=== PATIENT | male | born 1950 | race Caucasian/White ===

== ENCOUNTER → 2024-03-14 11:16 | Outpatient (REF) | payer MEDICARE, OTHER, SELFPAY | LOC: HWRAD 11:16 | PROVIDERS: ATTENDING PHYSICIAN Family Medicine Geriatric Medicine; FAMILY PHYSICIAN Family Medicine | DX: Z87.891 Personal history of nicotine dependence (principal) | CPT/HCPCS: 71271 ==

== ENCOUNTER 2024-05-14 14:35 | Inpatient (IN) | payer MEDICARE, OTHER, SELFPAY ==
[2024-05-14] VITALS (12 sets, daily range): BP systolic 113–170; BP diastolic 61–87; BMI 24.1
[2024-05-14 08:52] LABS: % Basophils 0.1 % (0-2); % Immature Granulocytes 0.3 % (0-0.5); % Lymphocytes 24.3 % (20.5-51.1); % Monocytes 5.7 % (1.7-9.3); % Neutrophils 69.6 % (42.2-75.2); Absolute Lymphocytes 2.2 10^3/uL (1.2-3.4); Absolute Monocytes 0.5 10^3/uL (0.1-0.6); Absolute Neutrophils 6.3 10^3/uL (1.4-6.5); Hematocrit 38.3 % (39.0-52.0); Mean Corp Hgb Conc. 33.9 g/dL (33.0-37.0); Mean Corpuscular Hgb 31.5 pg (27.0-31.0); Mean Corpuscular Volume 92.7 fL (80.0-94.0); Mean Platelet Volume 9.5 fL (7.4-10.4); Nucleated Red Blood Cells % 0 % (-); Platelet Count 250 10^3/uL (130-400); Red Blood Cell Count 4.13 10^6/uL (4.70-6.10); Red Cell Dist. Width 13.8 % (11.5-14.5); White Blood Cell Count 9.1 10^3/uL (4.8-10.8)
[2024-05-14 08:58] LABS: ALT (SGPT) 17 U/L (0-50); AST (SGOT) 27 U/L (17-59); Albumin 4.6 g/dl (3.5-5.0); Alkaline Phosphatase 77 U/L (38-126); Blood Urea Nitrogen 16 mg/dl (9-20); Calcium 9.7 mg/dl (8.4-10.2); Carbon Dioxide 26 mmol/L (22-30); Chloride 105 mmol/L (98-107); Glucose 136 mg/dl (70-99); Potassium 4.7 mmol/L (3.5-5.1); Sodium 140 mmol/L (135-145); Total Bilirubin 1.6 mg/dl (0.2-1.3); eGFR > 60.00
--- NOTE | 2024-05-14 09:43 | ED.GENMED ---
History of Present Illness
General
Chief Complaint: Urinary Symptoms
Time Seen by Provider: 05/14/24 09:28
History of Present Illness
History of Present Illness:
74-year-old male history of prostate cancer status postresection and radiation, hypertension presenting with hematuria and difficulty urinating starting this morning. Patient noticed hematuria starting yesterday. Patient states that he was unable
to urinate since early this morning. Patient denies abdominal pain, nausea, vomiting, dysuria, fever or chills. Patient is not on blood thinners.
Phy Exam
Physical Exam
Physical Exam:
General: Alert, no acute distress
Head: NCAT
Eyes: clear conjunctiva
Neck: supple
Cardiac: regular rate and rhythm, no murmur
Lungs: clear to auscultation bilaterally. No wheezes, rales, or rhonchi. Speaking full unlabored sentences. No respiratory distress.
Abdomen: soft, nondistended nontender. No rebound or guarding. No CVA tenderness bilaterally
MSK: no lower extremity edema bilaterally. No deformity
Skin: warm, dry
Neuro: Alert and oriented x3. no focal deficits
Course
Orders/Labs/Results
Orders:
Orders
05/14/24 08:34
Complete Blood Count/With Diff Urgent
Comprehensive Metabolic Panel Urgent
05/14/24 09:39
Lidocaine 2% [Lidocaine Uro-Jet 2%] 1 syringe .ROUTE .[facility]
05/14/24 09:45
CBI- Treatment PRN
Solution: ns
Irrigate to Clear?: Yes
05/14/24 10:10
Urinalysis Reflex To Culture Urgent
Urine Microscopic Reflex Cult Urgent
05/14/24 11:01
Abdomen/Pelvis w Contrast CT [CT Abd/pelvis W Iv Cont] Urgent
Comment:
Reason For Exam: hematuria, hx prostate ca s/p resection/radiation
05/14/24 14:07
Consult Urology [UROLOGY CONSULT] Routine
Consulting Provider: Pastor Huerta
Was physician already notified: Yes
Comment: hemturia , urine retention , hemorr vs mass on ct
05/14/24 14:08
Admit/Transfer Patient As Directed
Co-Sign Provider:
Level of Care: Inpatient admission
Assign to:: Medical/Surgical
Physician / Group: lexus chang
Diagnosis: hematuria w/ lots , urinary retention, acute emphysema
Reason for Hospitalization: hematuria w/ lots , urinary retention, acute emphysema
Expected length of stay greater than two midnights?: Yes
ELOS- Estimated Length of Stay in days: 3
I certify the patient meets the requirements for IP care: Yes
Code Status As Directed
Resuscitation Status: Do not resuscitate
Reached after discussion with pt or family/Healthcare POA: Yes
Based on pt advanced directive or healthcare POA form: Yes
Decision communicated with: per pt
DNR Bracelet Application ONCE
05/14/24 14:12
PRN Pain Medication Management As Directed
May give lesser potent ordered pain med per pt: Yes
preference::
Protocol:: Medication orders for pain may be administered in a
manner that supports deferring to patient preference
when the pt is:
- Requesting an ordered lesser potent pain medication.
Least to most potent pain medications are defined
as: acetaminophen < NSAID < tramadol < opioids
(morphine, oxycodone, hydromorphone).
- Requesting a lesser dose of the same medication IF
ORDERED.
- Requesting a less intrusive route of administration
if both routes are prescribed by the provider (PO <
IV).
05/14/24 14:22
Ipratropium/Albuterol Sulfate [Duoneb] 3 ml INH R NOW STA
05/14/24 16:00
Ipratropium/Albuterol Sulfate [Duoneb] 3 ml INH R QID
Abnormal Lab Results
05/14/24 05/14/24
08:34 10:10
RBC 4.13 L 10^6/uL
(4.70-6.10)
Hct 38.3 L %
(39.0-52.0)
MCH 31.5 H pg
(27.0-31.0)
Glucose 136 H mg/dl
(70-99)
Total Bilirubin 1.6 H mg/dl
(0.2-1.3)
Urine Ketones 2+ A
(Negative)
Ur Occult Blood Reflex 4+ A
(Negative)
Urine Bilirubin 1+ A
(Negative)
Urine Urobilinogen 2+ A
(Neg - 1+)
Urine RBC >100 A /HPF
(0-2)
Urine Albumin (Reflex) 4+ A
(Neg - Trace)
05/14/24 08:34
05/14/24 08:34
Vital Signs
Initial and Last Documented VS:
Initial Vital Signs
Temp Pulse Resp BP Pulse Ox
98.7 F 76 16 140/82 96
05/14/24 08:18 05/14/24 08:18 05/14/24 08:18 05/14/24 08:18 05/14/24 08:18
Last Documented Vital Signs
Temp Pulse Resp BP Pulse Ox
98.7 F 65 16 138/76 100
05/14/24 08:18 05/14/24 10:08 05/14/24 10:08 05/14/24 14:00 05/14/24 14:00
MDM/Problems Addressed
Differential Diagnosis Includes:
UTI, NATHANIEL, electrolyte abnormality, malignancy, bleeding from previous radiation
MDM/Problems Addressed:
74-year-old male presenting with hematuria and difficulty urinating. Bladder scan greater than [address] three-way Ramsay, start CBI
Results reviewed. Hemoglobin 13. Creatinine 0.8. UA shows blood but no UTI. CT abdomen/pelvis concerning for heterogeneous hypodensity which could represent hemorrhage, cannot exclude urinary bladder mass such as malignancy ( as read by radiology)
On reevaluation, ramsay draining pink-tinged urine. Pt states he feels better. Discussed with hospitalist for admission
*Critical Care Note
Total Time (30-74mins, 75-104mins- exclusive of procedures): Not Applicable
ED Attending Note
-
Portions of this chart may have been created with voice recognition software.� Occasional wrong word or��sound alike� substitutions may have occurred due to the inherent limitations of voice recognition software.
Discharge Plan
Departure
Patient Disposition: Admit
Date of Disposition: 05/14/24
Time of Disposition: 13:06
Presentation/result/management discussed w/ accepting MD/DO: Hospitalist
Discharge Problem:
Hematuria, Acute urinary retention
Interventions
Interventions:
*Risk Screen - Suicide Last Done: 05/14/24 08:18
*General Assessment Last Done: 05/14/24 08:18
*Neglect/Abuse Screening Last Done: 05/14/24 08:18
*ED- Fall Risk Assessment Last Done: 05/14/24 10:34
*ED COVID-19 Vaccine History Last Done: 05/14/24 08:18
ED-Male Genitourinary Assessment Last Done: 05/14/24 10:08
[2024-05-14 10:21] LABS: Urine Albumin 4+ (Neg - Trace); Urine Bilirubin 1+ (Negative); Urine Character Bloody (Clear); Urine Color Brown; Urine Glucose Negative (Negative); Urine Ketone 2+ (Negative); Urine Leukocyte Negative (Negative); Urine Nitrite Negative (Negative); Urine Occult Blood 4+ (Negative); Urine Urobilinogen 2+ (Neg - 1+)
[2024-05-14 10:46] LABS: Urine Red Blood Cell >100 /HPF (0-2); Urine Squamous Cell 0-2 /LPF (Few)
--- NOTE | 2024-05-14 13:25 | HPS.HSE ---
Family Physician
-
Family Physician: Moiz Erickson
Chief Complaint
-
Hematuria with clots, difficulty voiding
History of Present Illness
74-year-old male presenting to the ER with hematuria and difficulty urinating that started this morning. He does report hematuria starting yesterday. He has history of prostate cancer s/p resection and radiation at [facility] in 2017 while in the ER
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 Patient
reports a chronic cough for years with chronic wheezing he smokes a cigar daily. He tells me he had a CAT scan of his chest in March with follow-up this [facility] routine screening. Evaluation of his CT chest on 03/14/2024 shows
2 nodules within the left lower lobe measuring up to 3 mm apical centrilobular and paraseptal emphysematous changes with biapical pleural-parenchymal scarring. The patient denies headache, fever, chills, chest pain, palpitations, shortness of
breath, abdominal pain, nausea, vomiting, diarrhea. He has past medical history of hypertension, hypothyroidism/Graves' disease, GERD, prostate CA status post prostatectomy August 2017 [facility],, depression, active smoker, THREE AFFILIATED, history
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
Medical History
Past Medical History
Past Medical History: Reports Other
Additional Past Medical History:
Emphysema with pulmonary nodules left upper lobe 03/14/2024 CT
hypertension
hypothyroidism/Graves' disease
GERD
prostate CA status post prostatectomy August 2017 [facility]
depression
active smoker
THREE AFFILIATED
Past Surgical History: Reports Other
Additional Past Surgical History:
Prostatectomy August 2017 status post prostate cancer
Lumbar disc removal
Right big toe amputation
Social History
Tobacco: Smoker (1 cigar daily)
Alcohol: None
Drug: None
Personal:
Living: With Family ( [place])
Employment: Retired ([employer])
Family History
Family History: Other (Mother and father history of dementia in their 90s)
Allergies / Home Medications
Allergies reflects when Allergies were last updated in [facility].
Home Medications with original date entered in [employer]
Allergy/Medication List:
Allergies
Allergy/AdvReac Type Severity Reaction Status Date / Time
No Known Allergies Allergy Verified 05/14/24 08:20
Home Medications
valsartan 80 mg tablet 80 mg PO DAILY 02/12/19
amoxicillin 500 mg capsule 500 mg PO BID 05/14/24
escitalopram oxalate 5 mg tablet 5 mg PO DAILY 05/14/24
levothyroxine 112 mcg tablet (Synthroid) 112 mcg PO DAILY 05/14/24
Review of Systems
-
History Source: Patient
A 12 point ROS was completed and negative except as noted: Yes
Constitutional: Denies Fever, Fatigue or Chills
EENT: Reports Runny Nose (Chronic rhinorrhea); Denies Sore Throat or Mouth Pain
Respiratory: Reports Cough (Chronic cough sometimes productive) and Other (Chronic wheezing)
Cardiac: Denies Chest Pain, Diaphoresis, Palpitations or Syncope
Abdomen/GI: Denies Abdominal Pain, Nausea, Vomiting, Diarrhea, Constipated, Bloody Stools, Black Stools or Anorexia
: Reports Difficulty Voiding and Other (Hematuria with clots yesterday); Denies Frequency or Flank Pain
Musculoskeletal: Denies Joint Pain or Edema
Skin: Denies Itching or Rash
Neurological: Denies Dizzy, Headache or Weakness
Endocrine: Reports No Symptoms
Hematologic/Lymphatic: Reports No Symptoms
Psych: Reports Calm
Physical Exam
Vital Signs
Vital Signs
Temp Pulse Resp BP Pulse Ox
98.7 F 65 16 134/80 95
05/14/24 08:18 05/14/24 10:08 05/14/24 10:08 05/14/24 11:19 05/14/24 11:30
Physical Exam
General: Comfortable and Conversant; No Pain, Fever or Chills
HEENT: NormoCephalic, Anicteric, Moist mucous membranes, PERRLA, Hernandez Conjunctivae, No Ptosis and Other (Chronic THREE AFFILIATED)
Respiratory: Wheezes (Wheezes inspiratory/expiratory throughout both lung alicia)
Cardiac: S1/S2 and Regular Rhythm; No Murmur, Rub, Gallop or Peripheral Edema
Breast: Deferred by me
GI: Soft, Non Tender, Non Distended, Normal Bowel Sounds and No Hepatosplenomegaly
Rectal: Deferred by Provider
Genito-urinary: Westbrook (Three-way Westbrook draining strawberry tinged urine in color no visible clots)
Musculoskeletal: No Clubbing, No Cyanosis and No Edema
Skin: Warm and Dry; No Rash or Jaundice
Neuro: AO x 3, No Motor Deficits, Nonfocal/grossly intact, Cranial Nerves Intact and Other (Chronic THREE AFFILIATED); No Slurred Speech, Facial Droop, Tremors or Sedated
Psych: Calm
Laboratory Results
-
05/14/24 08:34
05/14/24 08:34
Laboratory Results
Total Bilirubin 1.6 mg/dl (0.2-1.3) H 05/14/24 08:34
AST 27 U/L (17-59) 05/14/24 08:34
ALT 17 U/L (0-50) 05/14/24 08:34
Alkaline Phosphatase 77 U/L (38-126) 05/14/24 08:34
Impression/Plan
-
Impression/plan:
Admit to MedSurg
#Acute urinary retention secondary to hematuria versus possible mass vs hemorrhage
- Urinary retention initially drained dark [employer] colored
- Continue three-way CBI until clear
- Consult urology
-Patient on chronic amoxicillin 500 mg twice daily for chronic tibia infection will continue
- Follow CBC, CMP
CT abdomen pelvis with IV contrast:
1. Virtually completely empty urinary bladder containing Westbrook catheter (with bubbles of air) with heterogeneous hypodensity which could represent HEMORRHAGE,
CANNOT EXCLUDE URINARY BLADDER MASS such as malignancy. Recommend cystoscopy.
2. Bilateral simple renal cysts as well as subcentimeter low-attenuation renal lesions too small to characterize. Additional approximate 6 cm predominantly simple left renal cyst with some thin internal
septations and some peripheral/wall calcifications, Bosniak II classification. Are there prior outside CT studies to confirm stability. If not, consider follow-up CT in 6 months.
3. Fluid-filled loops of nondistended small bowel, nonspecific, cannot exclude enteritis.
4. Small simple left lobe hepatic cyst as well as additional subcentimeter low-attenuation hepatic lesions too small to characterize.
5. Suspected mild thickening of wall of the distal thoracic esophagus at least concerning for esophagitis.
#Prostate CA status post prostatectomy August 2017 [facility]
Follows with Dr. Mary Carmen Gil urology
#Acute on chronic emphysema with exacerbation(new diagnosis emphysema per CT on 03/14/2024
#Nicotine abuse smokes 1 cigar daily cessation advised
#Pulmonary nodules x 2 left lower lobe
Patient has follow-up with [facility] Dr. Tamayo on , 05/16/2024
-95% RA
-DuoNebs scheduled and as needed
CT chest on 03/14/2024 shows 2 nodules within the left lower lobe measuring up to 3 mm apical centrilobular and paraseptal emphysematous changes with biapical pleural-parenchymal scarring
#Esophagitis per CT
- Mild thickening of wall of the distal thoracic esophagus concerning for esophagitis on CT
- Patient with no difficulty swallowing or sore throat
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
#Hx shattered tibia with screws placed 30 years ago post multiple infections, removal, washouts
- Continue amoxicillin 500 mg p.o. twice daily follows with infectious disease at [facility]
#Hypertension
-Continue valsartan 80 mg daily with hold parameters
#Hypothyroidism/Graves' disease
-Continue levothyroxine 125 mcg p.o. daily
#GERD
- No current meds
#Depression
-Continue Lexapro 5 mg daily
#THREE AFFILIATED
DVT prophylaxis
SCDs due to current hematuria
DNR per patient
--- NOTE | 2024-05-14 14:01 | W.PN.UPDATE ---
Update Note
Progress Note Update
This is an addendum to H&P written by Ayesha Walters on 05/14/2024. 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
74-year-old male past medical history of prostate cancer status post prostatectomy in 2016 at [place] and radiation, hypothyroidism, Graves' disease, smoker, chronic right tibia infection on amoxicillin, depression, hearing loss, hypertension,
presenting with hematuria with clots and urinary retention starting yesterday.
Also with chronic cough and wheezing. No prior diagnosis of COPD.
On examination patient with bilateral wheezing.
CT abdomen pelvis shows completely empty urinary bladder with Westbrook catheter, with heterogeneous hyperdensity which could represent hemorrhage. Bilateral simple renal cysts. Fluid-filled loops of nondistended small bowel nonspecific cannot exclude
enteritis. Suspected mild thickening of the wall of the distal thoracic esophagus concerning for esophagitis.
Urinalysis shows hematuria.
Patient with hematuria possibly secondary to radiation cystitis versus bladder mass urology consulted.
Patient with likely undiagnosed COPD. DuoNebs as needed.
[2024-05-14] MEDS: DUONEB 3 ML INH ×2 (14:31→19:17)
[2024-05-14] MEDS: DUONEB INH (15:29)
--- NOTE | 2024-05-14 15:42 | CONS.URO ---
Consultation
-
Date/Time Consultation Performed: 05/14/2024 1605
Requesting Provider: ED
Performing Provider: Bradley
Reason for Consultation: gross hematuria with clot retention
Medical History
History of Present Illness
74-year-old male presenting to the ER with hematuria and difficulty urinating that started this morning. He does report hematuria starting yesterday.
08/2017 Robotic Radical Prostatectomy at [facility]: T3a, GG 4+4
[address] Lieberman in [place]
Past Medical History
Past Medical History: Other ( Emphysema with pulmonary nodules left upper lobe 03/14/2024 CT hypertension hypothyroidism/Graves' disease GERD prostate CA, depression active smoker [facility])
Past Surgical History: Other (Prostatectomy August 2017 status post prostate cancer Lumbar disc removal Right big toe amputation)
Allergies/Home Medications
Allergies
Allergy/AdvReac Type Severity Reaction Status Date / Time
No Known Allergies Allergy Verified 05/14/24 08:20
Home Medications
�Medication �Instructions �Recorded �Confirmed �Type
valsartan 80 mg tablet 80 mg PO DAILY 02/12/19 05/14/24 History
amoxicillin 500 mg capsule 500 mg PO BID 05/14/24 05/14/24 History
escitalopram oxalate 5 mg tablet 5 mg PO DAILY 05/14/24 05/14/24 History
levothyroxine 112 mcg tablet 112 mcg PO DAILY 05/14/24 05/14/24 History
(Synthroid)
Physical Exam
Vital Signs
Vital Signs
Temp Pulse Resp BP Pulse Ox
98.7 F 65 16 138/76 100
05/14/24 08:18 05/14/24 10:08 05/14/24 10:08 05/14/24 14:00 05/14/24 14:00
Lab / Testing Results
Laboratory Results
05/14/24 08:34
05/14/24 08:34
Physical Exam
adult male in ED gurney
General: No Apparent Distress
HEENT: Normocephalic
GI: Soft
Genito-urinary: Westbrook Catheter (with CBI draining pale red, clot-free urine)
Neuro: Awake and Alert
Psych: Calm and Intact Judgement
Assessment / Plan
-
Gross hematuria with urinary retention -- DDx: radiation-cystitis versus bladder malignancy
Plan:
CBI overnight
OR tomorrow for cysto clot evacuation, biopsy/resection/fulguration of bleeding source
Data Reviewed
-
CT Scan: Image personally visualized and interpreted (Bilateral renal cysts -- numerous; Bladder: Westbrook in place; clot versus mass)
Old Records: Reviewed
--- NOTE | 2024-05-14 18:16 | PTCARENOTE ---
Pt arrived to 2S via stretcher, ambulated to bed with a standby assist, gait steady. CBI infusing per order, blood tinged urine draining. Pt and updated on plan of care. Pt offers no complaints at this time. Bed locked and in the lowest
position, safety maintained. Oriented to room and call rodriguez.
[2024-05-14] MEDS: AMOXIL 500 MG PO (20:05)
[2024-05-15] VITALS (11 sets, daily range): BP systolic 112–151; BP diastolic 62–96
[2024-05-15] MEDS: SYNTHROID 112 MCG PO (04:41)
[2024-05-15] MEDS: DUONEB 3 ML INH ×2 (07:13→11:09)
[2024-05-15 07:41] LABS: % Basophils 0.2 % (0-2); % Eosinophils 0.4 % (0-6); % Immature Granulocytes 0.5 % (0-0.5); % Lymphocytes 28.8 % (20.5-51.1); % Monocytes 9.2 % (1.7-9.3); % Neutrophils 60.9 % (42.2-75.2); Absolute Immature Granulocytes 0.1 10^3/uL (0-0.05); Absolute Lymphocytes 2.7 10^3/uL (1.2-3.4); Absolute Monocytes 0.9 10^3/uL (0.1-0.6); Absolute Neutrophils 5.7 10^3/uL (1.4-6.5); Hemoglobin 12.3 g/dL (13.0-18.0); Mean Corp Hgb Conc. 34.2 g/dL (33.0-37.0); Mean Corpuscular Hgb 31.4 pg (27.0-31.0); Mean Corpuscular Volume 91.8 fL (80.0-94.0); Nucleated Red Blood Cells % 0 % (-); Platelet Count 231 10^3/uL (130-400); Red Blood Cell Count 3.92 10^6/uL (4.70-6.10); Red Cell Dist. Width 13.9 % (11.5-14.5); White Blood Cell Count 9.3 10^3/uL (4.8-10.8)
[2024-05-15 07:45] LABS: ALT (SGPT) 15 U/L (0-50); AST (SGOT) 24 U/L (17-59); Albumin 4.5 g/dl (3.5-5.0); Alkaline Phosphatase 63 U/L (38-126); Blood Urea Nitrogen 17 mg/dl (9-20); Calcium 9.4 mg/dl (8.4-10.2); Carbon Dioxide 25 mmol/L (22-30); Chloride 107 mmol/L (98-107); Estimated Creatinine Clearance 72 ml/min; Glucose 110 mg/dl (70-99); Potassium 4.1 mmol/L (3.5-5.1); Sodium 141 mmol/L (135-145); Total Bilirubin 2.4 mg/dl (0.2-1.3); Total Protein 6.4 g/dl (6.3-8.2); eGFR > 60.00
[2024-05-15] MEDS: AMOXIL 500 MG PO ×2 (07:59→19:47)
[2024-05-15] MEDS: DIOVAN 80 MG PO (08:00)
[2024-05-15] MEDS: LEXAPRO 5 MG PO (08:00)
--- NOTE | 2024-05-15 08:28 | W.PN.HOSP.TC ---
Today's Communication/Plan
-
CBI. Urology reeval.
Assessment / Plan
Assessment / Plan
Physical exam:
General: Acute on chronically ill
HEENT: Normocephalic, Atraumatic and Moist Mucous Membranes
Respiratory: Decreased breath sounds bilateral; Negative Wheezes, Rales or Rhonchi
Cardiac: Regular Rhythm and S1/S2
GI: Soft, Nontender and Nondistended
Musculoskeletal: No Clubbing, No Cyanosis and No Edema
Neuro: Awake, Alert and Oriented, no gross neurological deficits
Psych: Calm
A/P:
Acute urinary retention and hematuria:
Etiology radiation cystitis versus bladder malignancy
Continue CBI
Plan for possible surgery for cystoscopy clot evacuation, biopsy, resection, fulguration of bleeding source by urology
Continue to monitor hemoglobin
Acute blood loss anemia:
Hemoglobin 12.3 today from 13 upon admission
Continue to monitor hemoglobin closely
COPD:
On scheduled DuoNebs-changed to as needed
Monitor respiratory status
Hypertension:
Continue Diovan 80 mg p.o. daily
Hypothyroidism:
Continue thyroid replacement
Depression:
Continue antidepressant
Chronic right tibia infection:
On chronic amoxicillin
DVT prophylaxis:
SCDs
CODE STATUS:
DNR
Total time spent on today's encounter was 52 minutes which included time spent in counseling the patient/family regarding diagnosis and treatment plan as listed above, goals of care, and symptom management. Case was discussed with nursing staff,
specialists, and care coordinators/case management. All labs and imaging personally reviewed by me. Remainder the time spent in detailed review of previous records, lab data, imaging, and other medical provider documentation.
Anticipated Discharge: > 48 hours
Subjective/Interval History
-
Date of Service: May 15, 2024
Patient denies shortness of breath or abdominal pain. Yellow urine with CBI. Afebrile
Objective Data
-
Labs:
Laboratory Results
05/15/24
06:01
WBC 9.3
Hgb 12.3 L
Hct 36.0 L
Plt Count 231
Sodium 141
Potassium 4.1
Chloride 107
Carbon Dioxide 25
BUN 17
Creatinine 0.9
Glucose 110 H
Calcium 9.4
Total Bilirubin 2.4 H
AST 24
ALT 15
Alkaline Phosphatase 63
Vital Signs:
Vital Signs
Temp Pulse Resp BP Pulse Ox
98.4 F 65 16 140/81 99
05/14/24 23:25 05/15/24 08:00 05/15/24 07:15 05/15/24 08:00 05/15/24 07:15
I&O
05/14/24 05/15/24 05/16/24
06:59 06:59 06:59
Output Total 4075 / 4075
Balance -4075 / -4075
--- NOTE | 2024-05-15 09:40 | CM ---
Reviewed the chart notes and spoke with the patient at the bedside. The patient resides with his spouse in a two story home with no steps to enter. The patient reports no DME/VN/SNF in the past. The patient confirmed his pharmacy of choice is [facility]. CM continues to be available to patient/family and is monitoring medical plan for needs at discharge.
Plan: Discharge plans will depend on the patient's progress.
[2024-05-15] MEDS: Pyridium 200 MG PO (17:04)
--- NOTE | 2024-05-15 17:36 | PTCARENOTE ---
Pt returned to 2S in bed. Pt offers no complaints at this time. Pt verbalized understanding of trial of void following catheter removal, urinal provided. Pt instructed to ring for assistance prior to getting OOB, verbalized understanding. Bed locked
and in the lowest position, safety maintained. Oriented to room and call rodriguez.
[2024-05-16 03:48] VITALS: BP 106/67
[2024-05-16] MEDS: SYNTHROID 112 MCG PO (05:33)
[2024-05-16 07:10] VITALS: BP 132/77
[2024-05-16 07:22] LABS: % Basophils 0.1 % (0-2); % Eosinophils 0.1 % (0-6); % Immature Granulocytes 0.5 % (0-0.5); % Lymphocytes 33.3 % (20.5-51.1); % Monocytes 8.5 % (1.7-9.3); % Neutrophils 57.5 % (42.2-75.2); Absolute Lymphocytes 2.9 10^3/uL (1.2-3.4); Absolute Monocytes 0.7 10^3/uL (0.1-0.6); Hematocrit 36.2 % (39.0-52.0); Hemoglobin 12.2 g/dL (13.0-18.0); Mean Corp Hgb Conc. 33.7 g/dL (33.0-37.0); Mean Corpuscular Hgb 31.3 pg (27.0-31.0); Mean Corpuscular Volume 92.8 fL (80.0-94.0); Mean Platelet Volume 9.8 fL (7.4-10.4); Nucleated Red Blood Cells % 0 % (-); Platelet Count 234 10^3/uL (130-400); Red Cell Dist. Width 13.7 % (11.5-14.5); White Blood Cell Count 8.6 10^3/uL (4.8-10.8)
[2024-05-16 07:59] LABS: Blood Urea Nitrogen 22 mg/dl (9-20); Calcium 9.3 mg/dl (8.4-10.2); Carbon Dioxide 27 mmol/L (22-30); Chloride 106 mmol/L (98-107); Estimated Creatinine Clearance 72 ml/min; Glucose 96 mg/dl (70-99); Potassium 4.6 mmol/L (3.5-5.1); Sodium 141 mmol/L (135-145); eGFR > 60.00
--- NOTE | 2024-05-16 08:49 | W.PN.HOSP.TC ---
Today's Communication/Plan
-
Discharge planning today
Assessment / Plan
Assessment / Plan
Physical exam:
General: No acute distress
HEENT: Normocephalic, Atraumatic and Moist Mucous Membranes
Respiratory: Decreased breath sounds bilateral; Negative Wheezes, Rales or Rhonchi
Cardiac: Regular Rhythm and S1/S2
GI: Soft, Nontender and Nondistended
Musculoskeletal: No Clubbing, No Cyanosis and No Edema
Neuro: Awake, Alert and Oriented, no gross neurological deficits
Psych: Calm
A/P:
Acute urinary retention and hematuria:
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
Went to the OR by urology yesterday
Off CBI
Urology cleared him for discharge today
PT eval prior to discharge if possible
Acute blood loss anemia:
Hemoglobin 12.2 today
Can monitor as outpatient
COPD:
On scheduled DuoNebs-changed to as needed
Monitor respiratory status
Hypertension:
Continue Diovan 80 mg p.o. daily
Hypothyroidism:
Continue thyroid replacement
Depression:
Continue antidepressant
Chronic right tibia infection:
On chronic amoxicillin
DVT prophylaxis:
SCDs
CODE STATUS:
DNR
Anticipated Discharge: Today
Subjective/Interval History
-
Date of Service: May 16, 2024
No new complaints.
Objective Data
-
Labs:
Laboratory Results
05/16/24
06:24
WBC 8.6
Hgb 12.2 L
Hct 36.2 L
Plt Count 234
Sodium 141
Potassium 4.6
Chloride 106
Carbon Dioxide 27
BUN 22 H
Creatinine 0.9
Glucose 96
Calcium 9.3
Vital Signs:
Vital Signs
Temp Pulse Resp BP Pulse Ox
97.8 F 62 18 132/77 94
05/16/24 07:10 05/16/24 07:10 05/16/24 07:10 05/16/24 07:10 05/16/24 07:10
I&O
05/15/24 05/16/24 05/17/24
06:59 06:59 06:59
Intake Total 1180 / 1180
Output Total 4075 / 4075 1200 / 1200
Balance -4075 / -4075 -20 / -20
--- NOTE | 2024-05-16 09:10 | W.PN.URO.CBU ---
Today's Communication / Plan
-
fit for discharge urologically
Assessment / Plan
-
Arrested hematuria
Diagnosis
-
Date of Service: May 16, 2024
-
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
Post Op Day: 1
Subjective
-
voiding volitionally - delmy
Objective
-
Vital Signs
Temp Pulse Resp BP Pulse Ox
97.8 F 62 18 132/77 94
05/16/24 07:10 05/16/24 07:10 05/16/24 07:10 05/16/24 07:10 05/16/24 07:10
Intake and Output
05/15/24 05/16/24 05/17/24
06:59 06:59 06:59
Intake Total 1180 / 1180
Output Total 4075 / 4075 1200 / 1200
Balance -4075 / -4075 -20 / -20
Intake:
Oral fluids 1080 / 1080
IV fluids (Total) 100 / 100
Normosol 100 / 100
Output:
Urine, Westbrook 2750 / 2750
Urine, Voided 500 / 500
True Urine Output from CBI 1325 / 1325 700 / 700
Laboratory Results
05/16/24 06:24
05/16/24 06:24
Physical Exam
-
General - well developed, well nourished, no acute distress
Abdomen - soft, non-tender, positive bowel sounds, no distention
[2024-05-16] MEDS: DIOVAN 80 MG PO (09:39)
[2024-05-16] MEDS: AMOXIL 500 MG PO (09:39)
[2024-05-16] MEDS: LEXAPRO 5 MG PO (09:39)
--- NOTE | 2024-05-16 10:55 | W.DCSUMMARY ---
Discharge Summary
Discharge Data
Date of Admission: 05/14/24
Date of Discharge: 05/16/24
-
Pending Results: No
Hospital Course
Patient 74 years old male with history of radical prostatectomy for prostate cancer, status postradiation in the past, hypothyroidism, GERD, COPD, came into the hospital with hematuria. Urology consulted. He had a CT scan of the abdomen that was
abnormal. He had CBI. 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 His hemoglobin had a mild drop but did not require blood transfusion. Patient also cleared hematuria
and having yellow urine. Patient had mild wheezing and was placed on bronchodilators and resolved. Urology cleared him for discharge. We asked RN to ambulate him to make sure there is no mobility issues and he did well. He will be discharged in
stable condition today.
Discharge duration: 35 minutes
Discharge Plan
-
Patient Disposition: Home (Routine Discharge)
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 Acute blood loss anemia.
Diet: Low Cholesterol
Activity: As tolerated
Blood Work: Please PCP to order CBC, BMP within 1 week
Referrals:
Pastor Huerta MD [Active] -
(have Dr. Avelar's office send salient records to: [facility]
make an appointment during July)
Moiz Erickson MD [Family Provider] - in less than 1 week
Prescriptions:
Continued
valsartan 80 MG tablet
80 mg PO DAILY
amoxicillin 500 mg Capsule
500 mg PO BID
escitalopram oxalate 5 mg Tablet
5 mg PO DAILY
levothyroxine [Synthroid] 112 mcg Tablet
112 mcg PO DAILY
Discharge Orders:
Discharge Patient (As Directed); Ordered 05/16/24
Ordered By: Neftaly Ureña
Discharge Date and Time
Discharge Date/Time: 05/16/24 13:01
Print Language: MONGOLIAN
[2024-05-16 11:25] VITALS: BP 133/73
--- NOTE | 2024-05-16 12:12 | CM ---
Reviewed the chart notes and spoke with the patient at the bedside. IMM reviewed. CM continues to be available to patient/family and is monitoring medical plan for needs at discharge.
Plan: Discharge to home. No needs identified at this time.
--- NOTE | 2024-05-16 13:05 | PTCARENOTE ---
Received discharge orders - reviewed instructions with patient and IV removed; All questions answered; Brought in wheelchair to d/c area.
== END 2024-05-16 13:01 | disposition home or self-care (01) | DRG 663 ==
LOC: 2 SOUTH 14:35
PROVIDERS: Clinical Nurse Specialist Family Health; Emergency Medicine; ADMITTING PHYSICIAN Hospitalist; ATTENDING PHYSICIAN Hospitalist; CONSULT PHYSICIAN Specialist; EMERGENCY PHYSICIAN Emergency Medicine; FAMILY PHYSICIAN Family Medicine
PROC: 0W3R8ZZ Control Bleeding in Genitourinary Tract, Via Natural or Artificial Opening Endoscopic (ICD-10-PCS; 2024-05-15)
PROC: 0TCB8ZZ Extirpation of Matter from Bladder, Via Natural or Artificial Opening Endoscopic (ICD-10-PCS; 2024-05-15)
DX: N30.41 Irradiation cystitis with hematuria (principal); D62 Acute posthemorrhagic anemia; T84.622A Infection and inflammatory reaction due to internal fixation device of right tibia, initial encounter; Y84.2 Radiological procedure and radiotherapy as the cause of abnormal reaction of the patient, or of later complication, without mention of misadventure at the time of the procedure; Z85.46 Personal history of malignant neoplasm of prostate; E03.9 Hypothyroidism, unspecified; K21.00 Gastro-esophageal reflux disease with esophagitis, without bleeding; Z90.79 Acquired absence of other genital organ(s); F32.A Depression, unspecified; I10 Essential (primary) hypertension; J44.9 Chronic obstructive pulmonary disease, unspecified; Z66 Do not resuscitate; E05.00 Thyrotoxicosis with diffuse goiter without thyrotoxic crisis or storm; F17.290 Nicotine dependence, other tobacco product, uncomplicated; K76.89 Other specified diseases of liver; N28.1 Cyst of kidney, acquired; Z79.2 Long term (current) use of antibiotics; Z79.899 Other long term (current) drug therapy; Z92.3 Personal history of irradiation
CPT/HCPCS: 74177; 80048; 80053; 81003; 81015; 85025; 93005; 94640; 99285; Q9967

== ENCOUNTER 2024-11-05 12:12 | Outpatient (RCR) | payer MEDICARE, OTHER, SELFPAY | END 2024-11-05 23:59 | disposition home or self-care (01) | LOC: RPT 12:12 | PROVIDERS: ATTENDING PHYSICIAN Family Medicine Geriatric Medicine; FAMILY PHYSICIAN Family Medicine | DX: M62.89 Other specified disorders of muscle (principal); N39.3 Stress incontinence (female) (male); R15.9 Full incontinence of feces; Z73.6 Limitation of activities due to disability; Z85.46 Personal history of malignant neoplasm of prostate | CPT/HCPCS: 97110; 97112; 97163; 97530 ==

== ENCOUNTER 2024-11-19 09:31 | Outpatient (RCR) | payer MEDICARE, OTHER, SELFPAY | END 2024-11-19 23:59 | disposition home or self-care (01) | LOC: RPT 09:31 | PROVIDERS: ATTENDING PHYSICIAN Family Medicine Geriatric Medicine; FAMILY PHYSICIAN Family Medicine | DX: M62.89 Other specified disorders of muscle (principal); N39.3 Stress incontinence (female) (male); R15.9 Full incontinence of feces; Z73.6 Limitation of activities due to disability; Z85.46 Personal history of malignant neoplasm of prostate | CPT/HCPCS: 97112; 97530 ==

== ENCOUNTER 2024-12-24 10:45 | Outpatient (RCR) | payer MEDICARE, OTHER, SELFPAY | END 2024-12-24 23:59 | disposition home or self-care (01) | LOC: RPT 10:45 | PROVIDERS: ATTENDING PHYSICIAN Family Medicine Geriatric Medicine; FAMILY PHYSICIAN Family Medicine | DX: M62.89 Other specified disorders of muscle (principal); N39.3 Stress incontinence (female) (male); R15.9 Full incontinence of feces; Z73.6 Limitation of activities due to disability; Z85.46 Personal history of malignant neoplasm of prostate | CPT/HCPCS: 97112; 97530 ==

== ENCOUNTER 2025-01-14 13:55 | Outpatient (RCR) | payer MEDICARE, OTHER, SELFPAY | END 2025-01-14 23:59 | disposition home or self-care (01) | LOC: RPT 13:55 | PROVIDERS: ATTENDING PHYSICIAN Family Medicine Geriatric Medicine; FAMILY PHYSICIAN Family Medicine | DX: M62.89 Other specified disorders of muscle (principal); N39.3 Stress incontinence (female) (male); R15.9 Full incontinence of feces; Z73.6 Limitation of activities due to disability; Z85.46 Personal history of malignant neoplasm of prostate | CPT/HCPCS: 97530 ==